=== PATIENT | male | born 1980 | race Caucasian/White ===

== ENCOUNTER 2021-05-05 12:19 | Outpatient (CLI) | payer OTHER, SELFPAY ==
--- NOTE | ~2021-05-05 | MR_ITS ---
EXAMINATION: MR shoulder RT w con DATE: 05/05/2021 14:16 INDICATION: Chronic right shoulder pain TECHNIQUE: Magnetic resonance imaging (MRI) of the right shoulder was performed following intra-stephanie cular gadolinium contrast injection and without intravenous contrast. Details of the glenohumeral tulio nt injection have been dictated separately. Sequences included axial T2-weighted FS FSE, axial T1-we ighted FS FSE, coronal oblique T1-weighted FS FSE, coronal oblique T2-weighted FSE, sagittal T2-weigh singh FS FSE, sagittal T1-weighted FSE, and ABER (abduction external rotation) T1-weighted FS FSE. COMPARISON: None. FINDINGS: Coracoacromial arch: The acromion undersurface is curved in morphology (type II). The coracoacromial ligament is normal. Rotator cuff: Mild supraspinatus tendinopathy without discrete tear. The infraspinatus, teres minor and subscapular is tendons are normal. Normal rotator cuff muscle bulk and signal. Biceps tendon, glenoid labrum and glenohumeral cartilage: Long head of the biceps tendon is intact. There is a tear of the glenoid labrum beginning superiorly at the 12:00 position and extending posteriorly and inferiorly to the 7:30 position. Small partial-th ickness chondral fissure along the rim at the 2:00 position of the anterosuperior glenoid. Glenohumer al cartilage is otherwise normal. Bones and other: Acromioclavicular arthrosis with edema at both sides of the joint space more prominent at the lateral head of the clavicle where there is irregular cortical contour suggesting possibility of erosions. S mall joint effusion at the acromioclavicular joint space which measures up to 8 mm in width. Marrow s ignal is otherwise normal no fracture or pathologic marrow replacing process. No abnormal fluid at th e subacromial/subdeltoid bursa to suggest bursitis. IMPRESSION: 1. Small acromioclavicular joint effusion with edema along both sides of the joint space and irregula r cortical contour suggesting possible erosions at the lateral head of the clavicle. Differential wou ld include osteoarthritis, other nonspecific inflammatory arthritis or distal clavicular osteolysis. 2. Tear of the superior to posterior inferior glenoid labrum. 2. Mild supraspinatus tendinopathy without discrete tear. Reviewed, dictated and finalized at location A. ER COOK IMPRESSION: 1. Small acromioclavicular joint effusion with edema along both sides of the adriana int space and irregular cortical contour suggesting possible erosions at the la teral head of the clavicle. Differential would include osteoarthritis, other no nspecific inflammatory arthritis or distal clavicular osteolysis. 2. Tear of the superior to posterior inferior glenoid labrum. 2. Mild supraspinatus tendinopathy without discrete tear.
--- NOTE | ~2021-05-05 | XR_ITS ---
EXAMINATION: XR fl inj shoulder RT - MR/CT DATE: 05/05/2021 13:43 INDICATION: Chronic right shoulder pain post injury 5 months prior. TECHNIQUE: A time-out was performed to verify the patient's name, date of , and procedure to b e performed. The procedure including the risks, benefits, and alternatives was discussed with the pat ient. Risks discussed included bleeding and infection. The patient understood the risks and agreed to proceed. The skin overlying the rotator cuff interval of the right glenohumeral joint was prepped a nd draped in usual sterile fashion. Anesthetic was administered with 1% lidocaine subcutaneously. A 22 G needle was advanced under fluoroscopic guidance into the joint. Injection of 1 mL of Omnipaque 240 confirmed intra-articular position of the needle. Subsequently, injectate consisting of 12 mL o f 2:1:1 mixture of sterile saline:Omnipaque 240:1% lidocaine mixed 200:1 with 529 mg/mL Multihance ga dolinium contrast was injected with intra-articular administration confirmed with intermittent fluoro scopy. The needle was removed and the entry site was cleaned and dressed. There were no immediate co mplications. Fluoroscopy exposure time was 0.2 minutes. The total number of images was 90. FINDINGS: Real-time fluoroscopy demonstrates the needle and contrast in the right glenohumeral joint. Patient's pain prior to procedure:10/02. Patient's pain following the procedure: 04/04. IMPRESSION: 1. Successful right glenohumeral joint injection of dilute contrast mixture for subsequent MR arthrog ilan which will be dictated separately. Reviewed, dictated and finalized at location A. RECOV[employer] OFFICER IMPRESSION: 1. Successful right glenohumeral joint injection of dilute contrast mixture for subsequent MR arthrogram which will be dictated separately.
== END 2021-05-05 12:20 | disposition home or self-care (01) ==
PROVIDERS: PCP Otolaryngology; Visit Provider Orthopaedic Surgery
DX: S43.491A Other sprain of right shoulder joint, initial encounter (principal); X58.XXXA Exposure to other specified factors, initial encounter
CPT/HCPCS: 23350; 73222; 77002; A9577; Q9966